=== PATIENT | male | born 1995 | race Two or more races ===

== ENCOUNTER 2020-05-17 10:24 | Day surgery (SDC) | payer OTHER ==
[~2020-05-17] VITALS: Ht 167.6 cm; Wt 101.5 kg
[~2020-05-17 10:24] MED LIST: BUPIVACAINE/PF 0.25% ONE; EPINEPHRINE 1 MG/ML, 1ML ONE
[2020-05-17] MEDS ORDERED: FENTANYL PF 250 MCG/5ML ONE (11:01)
[2020-05-17] MEDS ORDERED: MIDAZOLAM 1 MG/ML, 5ML ONE (11:01)
[2020-05-17] MEDS ORDERED: CHLORHEXIDINE 15 ML UDC ONE (11:11)
[2020-05-17 11:19] VITALS: BP 122/83
[2020-05-17] MEDS ORDERED: LOVENOX SQ (11:29)
[2020-05-17] MEDS ORDERED: FENTANYL PF 100 MCG/2ML IV PRN (11:30)
[2020-05-17] MEDS ORDERED: DIPHENHYDRAMINE 50 MG/ML, 1ML IVPush PRN (11:30)
[2020-05-17] MEDS ORDERED: LACTATED RINGERS 1,000 ML IV SCH (11:30)
[2020-05-17] MEDS ORDERED: HALOPERIDOL 5 MG/ML IV PRN (11:30)
[2020-05-17] MEDS ORDERED: HYDROcodone/APAP 7.5-325MG/15ML UDC PO PRN (11:30)
[2020-05-17] MEDS ORDERED: PROMETHAZINE 25 MG/ML, 1ML IVPush PRN (11:30)
[2020-05-17] MEDS ORDERED: hydrALAzine 20 MG/ML, 1ML IV PRN (11:30)
[2020-05-17] MEDS ORDERED: HYDROmorphone 1 MG/ML, 1ML INJ IVPush PRN (11:30)
[2020-05-17] MEDS ORDERED: CHLORHEXIDINE 15 ML UDC MM ONE (11:30)
[2020-05-17] MEDS ORDERED: LIDOCAINE-MPF 1%, 2ML INFIL ONE (11:30)
[2020-05-17] MEDS ORDERED: LABETALOL 5MG/ML, 20ML IV PRN (11:30)
[2020-05-17] MEDS ORDERED: DEXAMETHASONE 4 MG/ML, 1ML ONE (11:43)
[2020-05-17] MEDS ORDERED: TOBRAMYCIN SULFATE 1.2 GM IMP ONE (14:03)
[2020-05-17] MEDS ORDERED: FENTANYL PF 100 MCG/2ML ONE ×2 (15:16→15:56)
[2020-05-17] MEDS ORDERED: CEFAZOLIN 1,000 MG ONE (15:16)
[2020-05-17] MEDS ORDERED: ROCURONIUM 10MG/ML,5ML ONE (15:16)
[2020-05-17] MEDS ORDERED: GLYCOPYRROLATE 0.2MG/1ML, 5ML ONE (15:16)
[2020-05-17] MEDS ORDERED: ONDANSETRON 2MG/ML, 2ML ONE (15:16)
[2020-05-17] MEDS ORDERED: PROPOFOL 10 MG/ML, 20ML ONE (15:16)
[2020-05-17] MEDS ORDERED: SUCCINYLCHOLINE 20 MG/ML, 10ML ONE (15:16)
[2020-05-17] MEDS ORDERED: NEOSTIGMINE 1 MG/ML, 10ML ONE (15:16)
[2020-05-17] MEDS ORDERED: MEPERIDINE/PF 25MG/ML,1ML ONE ×2 (15:57→16:09)
[2020-05-17] MEDS ORDERED: OXYcodone 5 MG/5 ML ORAL.SOL UDC ONE (15:57)
[2020-05-17] MEDS: MEPERIDINE/PF 25MG/0.5ML IVPush PRN ×2 (15:59→16:14)
[2020-05-17] MEDS ORDERED: HYDROcodone/APAP 7.5-325MG/15ML UDC ONE (16:19)
== END 2020-05-17 18:00 | disposition home or self-care (01) ==
LOC: OUT 10:24
PROVIDERS: ATTEND Orthopaedic Surgery
DX: S83.522A Sprain of posterior cruciate ligament of left knee, initial encounter (principal); S83.242A Other tear of medial meniscus, current injury, left knee, initial encounter; G89.18 Other acute postprocedural pain; Z79.899 Other long term (current) drug therapy; Z98.890 Other specified postprocedural states; X58.XXXA Exposure to other specified factors, initial encounter; Y93.61 Activity, american tackle football; Y92.89 Other specified places as the place of occurrence of the external cause; Y99.8 Other external cause status
CPT/HCPCS: 29882; 29889; 64447; 73560; C1713; C1762; C1763; J0171; J0330; J0690; J1100; J1170; J2175; J2250; J2405; J2704; J3010; J3260; 76000; J2710